=== PATIENT | female | born 1960 | race Caucasian/White ===

== ENCOUNTER 2017-12-26 17:21 | Emergency (ER) | payer OTHER ==
[~2017-12-26] VITALS: Ht 162.6 cm; Wt 55.0 kg
[~2017-12-26 17:21] MED LIST: ESTR1 PO; LAMO100 PO; LEVO.05 PO; TOPI100 PO
[2017-12-26] MEDS ORDERED: TOPI200 PO (17:58)
[2017-12-26] MEDS ORDERED: SYNT175T PO (17:58)
[2017-12-26] MEDS ORDERED: LAMI200T PO (17:58)
--- NOTE | 2017-12-26 17:58 | PD ---
HPI Chief Complaint: Psychiatric Symptoms Time Seen by Provider: 17:40 Travel History International Travel<30 days: No Contact w/Intl Traveler<30days: No Traveled to known affect area: No History of Present Illness HPI 57-year-old female is brought to the emergency department by [facility] for psychiatric evaluation. According to the Mccormack act, the patient made comments that she wanted to hurt herself. She apparently has history of alcohol and drug abuse. The patient appears intoxicated, but answers questions appropriately. She denies any thoughts of hurting herself or anybody else. She does not have feces to her hands and feet. She states she fell and that is why she has feces on her. She denies hitting her head or any LOC. No neck pain or back pain. No chest pain or abdominal pain. No vomiting. She has no medical complaints at this time. She states she uses medical marijuana, but denies any other drug use to me. She states she did drink alcohol last night. Moderate severity. PFSH Past Medical History Diminished Hearing: Yes ([place]) Migraines: Yes Seizures: Yes (epilepsy) Thyroid Disease: Yes ?: Not Past Surgical History Hysterectomy: Yes Social History Alcohol Use: Yes (occ- last used 12/25/17) Tobacco Use: No Substance Use: Yes (marijuana) Allergies-Medications (Allergen,Severity, Reaction): Coded Allergies: Sulfa (Sulfonamide Antibiotics) (Unverified Allergy, Severe, 12/26/17) diclofenac (Unverified Allergy, Severe, 12/26/17) etodolac (Unverified Allergy, Severe, 12/26/17) flurbiprofen (Unverified Allergy, Severe, 12/26/17) ibuprofen (Unverified Allergy, Severe, 12/26/17) indomethacin (Unverified Allergy, Severe, 12/26/17) ketoprofen (Unverified Allergy, Severe, 12/26/17) ketorolac (Unverified Allergy, Severe, 12/26/17) naproxen (Unverified Allergy, Severe, 12/26/17) oxaprozin (Unverified Allergy, Severe, 12/26/17) NSAIDS (Non-Steroidal Anti-Inflamma (Verified Allergy, Unknown, 12/26/17) Reported Meds & Prescriptions Reported Meds & Active Scripts Active Reported Topamax (Topiramate) 200 Mg Tab 200 Mg PO DAILY Synthroid (Levothyroxine Sodium) 175 Mcg Tab 175 Mcg PO DAILY Lamictal (Lamotrigine) 200 Mg Tab 200 Mg PO DAILY Review of Systems Except as stated in HPI: all other systems reviewed are Neg Physical Exam Narrative GENERAL: Well-nourished, well-developed female patient, afebrile. Patient is alert and oriented to person, place, time SKIN: Focused skin assessment warm/dry. HEAD: Normocephalic. Atraumatic EYES: No scleral icterus. No injection or drainage. NECK: Supple, trachea midline. No JVD or lymphadenopathy. CARDIOVASCULAR: Regular rate and rhythm without murmurs, gallops, or rubs. RESPIRATORY: Breath sounds equal bilaterally. No accessory muscle use. Lung sounds are clear to auscultation. GASTROINTESTINAL: Abdomen soft, non-tender, nondistended. MUSCULOSKELETAL: No cyanosis, or edema. PSYCHIATRIC: No delusional thought processes. No hallucinations. Data Data Orders Orders Complete Blood Count With Diff (12/26/17 17:53) Comprehensive Metabolic Panel (12/26/17 17:53) Thyroid Stimulating Hormone (12/26/17 17:53) Psych Screen (12/26/17 17:53) Drug Screen, Random Urine (12/26/17 17:53) Alcohol (Ethanol) (12/26/17 17:53) Potassium Chloride (Kcl) (12/26/17 21:00) Labs Laboratory Tests Test 12/26/17 17:59 White Blood Count 4.2 TH/MM3 Red Blood Count 4.31 MIL/MM3 Hemoglobin 14.4 GM/DL Hematocrit 42.7 % Mean Corpuscular Volume 99.1 FL Mean Corpuscular Hemoglobin 33.5 PG Mean Corpuscular Hemoglobin Concent 33.8 % Red Cell Distribution Width 14.1 % Platelet Count 188 TH/MM3 Mean Platelet Volume 8.1 FL Neutrophils (%) (Auto) 30.5 % Lymphocytes (%) (Auto) 58.3 % Monocytes (%) (Auto) 9.6 % Eosinophils (%) (Auto) 1.3 % Basophils (%) (Auto) 0.3 % Neutrophils # (Auto) 1.3 TH/MM3 Lymphocytes # (Auto) 2.4 TH/MM3 Monocytes # (Auto) 0.4 TH/MM3 Eosinophils # (Auto) 0.1 TH/MM3 Basophils # (Auto) 0.0 TH/MM3 CBC Comment DIFF FINAL Differential Comment Blood Urea Nitrogen 3 MG/DL Creatinine 0.75 MG/DL Random Glucose 109 MG/DL Total Protein 7.2 GM/DL Albumin 3.1 GM/DL Calcium Level 8.1 MG/DL Alkaline Phosphatase 152 U/L Aspartate Amino Transf (AST/SGOT) 142 U/L Alanine Aminotransferase (ALT/SGPT) 44 U/L Total Bilirubin 0.2 MG/DL Sodium Level 144 MEQ/L Potassium Level 3.2 MEQ/L Chloride Level 108 MEQ/L Carbon Dioxide Level 24.3 MEQ/L Anion Gap 12 MEQ/L Estimat Glomerular Filtration Rate 80 ML/MIN Thyroid Stimulating Hormone 3rd Gen 0.231 uIU/ML Ethyl Alcohol Level 384 MG/DL [facility] Medical Decision Making Medical Screen Exam Complete: Yes Emergency Medical Condition: Yes Medical Record Reviewed: Yes Differential Diagnosis Depression versus anxiety versus bipolar disorder versus substance abuse Narrative Course 37-year-old female presents to the emergency department under Mccormack act by local police. CBC, CMP, TSH, alcohol level, urine drug screen are ordered and pending. Psychiatric screen is ordered and pending. CBC shows no acute abnormality. CMP shows hypokalemia at 3.2, elevated AST of 142, alkaline phosphatase 152. TSH is 0.231. Alcohol level is 384. UDS is pending Patient is medically cleared for psychiatric screening and disposition. Diagnosis Primary Impression: Alcohol intoxication Qualified Codes: F10.920 - Alcohol use, unspecified with intoxication, uncomplicated Additional Impression: Medical clearance for psychiatric admission Condition: Stable Keena Simpson [place] Dec 26, 2017 17:58
[2017-12-26 18:13] LABS: AUTOMATED NEUTROPHIL # 1.3 TH/MM3 (1.8-7.7); BASOPHIL % 0.3 % (0.0-2.0); EOSINOPHIL # 0.1 TH/MM3 (0-0.4); EOSINOPHIL % 1.3 % (0.0-4.0); HEMATOCRIT 42.7 % (35.0-46.0); HEMOGLOBIN 14.4 GM/DL (11.6-15.3); LYMPH % 58.3 % (9.0-44.0); LYMPHOCYTE # 2.4 TH/MM3 (1.0-4.8); MEAN CELL VOLUME 99.1 FL (80.0-100.0); MEAN CORPUSCULAR HEMOGLOBIN 33.5 PG (27.0-34.0); MEAN CORPUSCULAR HGB CONC 33.8 % (32.0-36.0); MEAN PLATELET VOLUME 8.1 FL (7.0-11.0); MONO % 9.6 % (0.0-8.0); MONOCYTE # 0.4 TH/MM3 (0-0.9); NEUT % 30.5 % (16.0-70.0); PLATELET COUNT 188 TH/MM3 (150-450); RED BLOOD COUNT 4.31 MIL/MM3 (4.00-5.30); RED CELL DISTRIBUTION WIDTH 14.1 % (11.6-17.2); WHITE BLOOD COUNT 4.2 TH/MM3 (4.0-11.0)
[2017-12-26 18:40] LABS: ALT (GPT) 44 U/L (10-53)
[2017-12-26 18:42] LABS: ALBUMIN 3.1 GM/DL (3.4-5.0); AST (GOT) 142 U/L (15-37); BICARBONATE 24.3 MEQ/L (21.0-32.0); BLOOD UREA NITROGEN 3 MG/DL (7-18); CALCIUM 8.1 MG/DL (8.5-10.1); CHLORIDE 108 MEQ/L (98-107); CREATININE 0.75 MG/DL (0.50-1.00); GLOMERULAR FILTRATION RATE 80 ML/MIN (>89); GLUCOSE,RANDOM 109 MG/DL (74-106); SODIUM (NA) 144 MEQ/L (136-145)
[2017-12-26 18:49] LABS: ALKALINE PHOSPHATASE 152 U/L (45-117); TOTAL BILIRUBIN ADULT 0.2 MG/DL (0.2-1.0); TOTAL PROTEIN 7.2 GM/DL (6.4-8.2)
[2017-12-26] MEDS ORDERED: POTASSIUM CHLORIDE 20 MEQ CONTROLLED RELEASE TAB PO ONE (21:00)
[2017-12-26 21:12] VITALS: BP 109/70; PULSE 89; RESP 16; TEMP 98; O2SAT 98
[2017-12-27 02:32] VITALS: BP 120/77; PULSE 87; RESP 16; O2SAT 96
[2017-12-27] MEDS ORDERED: DIPHENOXYLATE/ATROPINE 2.5 MG/0.025 MG TAB PO ONE (04:00)
[2017-12-27 06:40] VITALS: BP 131/81; PULSE 84; RESP 18; O2SAT 97
--- NOTE | 2017-12-27 13:09 | PD ---
History of Present Illness Chief Complaint: Psychiatric Symptoms Time Seen by Provider: 12:40 Travel History International Travel<30 Days: No Contact w/Intl Traveler<30days: No Known affected area: No Legal Status Legal Status: Mccormack Act Mccormack Act Signed By: Benitez Hopkins History of Present Illness: History of Present Illness HPI 57-year-old, single, female with no reported psychiatric history, when context of alcohol intoxication was brought to the emergency department by [facility] under a Mccormack act initiated by [place] [employer] for psychiatric evaluation. According to the Mccormack act, the patient made comments to her [id number] that she did not want to live anymore. Upon arrival to the ED the patient appeared intoxicated to the provider who evaluated her. Her blood alcohol level at the time of arrival was 384. Patient was allowed to sober up clinically and safe environment and presented no behavioral concerns and no suicidality. EMR is reviewed. No previous contact with [facility] psychiatry Department. As noted above BAL on arrival is 384. Positive toxicology for benzos and cannabinoids. She reports she uses medical marijuana. Patient is seen. She is clinically sober at this time. She is calm and cooperative. Her speech is clear, logical, normal tone and rate. It is tremulous. There is no psychosis, no anna or hypomania. Mood is euthymic. The patient denies any suicidal or homicidal ideation, intent or plan. She states I have no reason to harm myself or to harm anyone else." I have a nice home. I take care of my mom and I am responsible for my father's estate. My brother misunderstood what I said. I stated I don't want to live in [place] anymore. "The patient denies any previous psychiatric history. She denies any current psychiatric symptomatology. Patient denies that she drinks on a daily basis and that yesterday was an isolated incident. PFSH Past Medical History Diminished Hearing: Yes ([place]) Migraines: Yes Seizures: Yes (epilepsy) Thyroid Disease: Yes ?: Not Past Surgical History Hysterectomy: Yes Psychiatric History Psychiatric History Hx Psychiatric Treatment: DENIES any previous. Denies any previous suicide attempt. History of Inpatient Treatment: No Guns or firearms in home: No Social History Single, female, lives with her ex [id number]. She is on disability due to previous head injury. Hx Alcohol Use: Yes (occ- last used 12/25/17) Hx Tobacco Use: No Hx Substance Use: Yes (MINIMIZES ALCOHOL ABUSE/DEPENDENCE) Substance Use Type: Alcohol, Marijuana, Benzos (Valium,Xanax) Hx of Substance Use Treatment: No Family Psychiatric History Negative Allergies-Medications (Allergen,Severity, Reaction): Coded Allergies: Sulfa (Sulfonamide Antibiotics) (Unverified Allergy, Severe, 12/26/17) diclofenac (Unverified Allergy, Severe, 12/26/17) etodolac (Unverified Allergy, Severe, 12/26/17) flurbiprofen (Unverified Allergy, Severe, 12/26/17) ibuprofen (Unverified Allergy, Severe, 12/26/17) indomethacin (Unverified Allergy, Severe, 12/26/17) ketoprofen (Unverified Allergy, Severe, 12/26/17) ketorolac (Unverified Allergy, Severe, 12/26/17) naproxen (Unverified Allergy, Severe, 12/26/17) oxaprozin (Unverified Allergy, Severe, 12/26/17) NSAIDS (Non-Steroidal Anti-Inflamma (Verified Allergy, Unknown, 12/26/17) Reported Meds & Prescriptions Reported Meds & Active Scripts Active Reported Topamax (Topiramate) 200 Mg Tab 200 Mg PO DAILY Synthroid (Levothyroxine Sodium) 175 Mcg Tab 175 Mcg PO DAILY Lamictal (Lamotrigine) 200 Mg Tab 200 Mg PO DAILY Review of Systems Ears, nose, mouth, throat: COMPLAINS OF: Hearing loss Except as stated in HPI: all other systems reviewed are Neg Mental Status Examination Appearance: Appropriate (in hospital gown with fair hygiene and grooming) Consciousness: Alert Orientation: x4 Motor Activity: Normal gait Speech: Unremarkable, Other (tremulous) Language: Adequate Fund of Knowledge: Adequate Attention and Concentration: Adequate Memory: Unremarkable Mood: Appropriate Affect: Appropriate Thought Process & Associations: Intact, Logical, Goal directed Thought Content: Appropriate Hallucination Type: None Delusion Type: None Suicidal Ideation: No Suicidal Plan: No Suicidal Intention: No Homicidal Ideation: No Homicidal Plan: No Homicidal Intention: No Insight: Fair Judgment: Adequate MDM Medical Decision Making Medical Record Reviewed: Yes Assessment/Plan 57-year-old, single, female with no reported psychiatric history, when context of alcohol intoxication was brought to the emergency department by [facility] under a Mccormack act initiated by [place] [employer] for psychiatric evaluation. According to the Mccormack act, the patient made comments to her [id number] that she did not want to live anymore. Upon arrival to the ED the patient appeared intoxicated to the provider who evaluated her. Her blood alcohol level at the time of arrival was 384. Patient was allowed to sober up clinically and safe environment and presented no behavioral concerns and no suicidality. Patient continued to deny suicidality throughout her stay in the emergency department. She continues to minimize her use of alcohol and denies that she is a daily drinker. The patient at this time does not present any evidence of unstable mental illness as defined under the Mccormack act therefore the Mccormack act will be lifted. She is provided psychoeducation and instructed to abstain from alcohol. Psychiatrically clear for discharge from the ED. Orders Orders Complete Blood Count With Diff (12/26/17 17:53) Comprehensive Metabolic Panel (12/26/17 17:53) Thyroid Stimulating Hormone (12/26/17 17:53) Psych Screen (12/26/17 17:53) Drug Screen, Random Urine (12/26/17 17:53) Alcohol (Ethanol) (12/26/17 17:53) Potassium Chloride (Kcl) (12/26/17 21:00) Diphenoxylate/Atropine Tab (Lomotil Tab) (12/27/17 04:00) Diet Regular Basic (12/27/17 Breakfast) Diet Regular Basic (12/27/17 Lunch) Results Vital Signs Date Time Temp Pulse Resp B/P (MAP) Pulse Ox O2 Delivery O2 Flow Rate FiO2 12/27/17 06:40 84 18 131/81 (98) 97 12/27/17 02:32 87 16 120/77 (91) 96 Room Air 12/26/17 21:12 98.0 89 16 109/70 (83) 98 Room Air Laboratory Tests Test 12/26/17 17:59 12/27/17 02:17 White Blood Count 4.2 Red Blood Count 4.31 Hemoglobin 14.4 Hematocrit 42.7 Mean Corpuscular Volume 99.1 Mean Corpuscular Hemoglobin 33.5 Mean Corpuscular Hemoglobin Concent 33.8 Red Cell Distribution Width 14.1 Platelet Count 188 Mean Platelet Volume 8.1 Neutrophils (%) (Auto) 30.5 Lymphocytes (%) (Auto) 58.3 Monocytes (%) (Auto) 9.6 Eosinophils (%) (Auto) 1.3 Basophils (%) (Auto) 0.3 Neutrophils # (Auto) 1.3 Lymphocytes # (Auto) 2.4 Monocytes # (Auto) 0.4 Eosinophils # (Auto) 0.1 Basophils # (Auto) 0.0 CBC Comment DIFF FINAL Differential Comment Blood Urea Nitrogen 3 Creatinine 0.75 Random Glucose 109 Total Protein 7.2 Albumin 3.1 Calcium Level 8.1 Alkaline Phosphatase 152 Aspartate Amino Transf (AST/SGOT) 142 Alanine Aminotransferase (ALT/SGPT) 44 Total Bilirubin 0.2 Sodium Level 144 Potassium Level 3.2 Chloride Level 108 Carbon Dioxide Level 24.3 Anion Gap 12 Estimat Glomerular Filtration Rate 80 Thyroid Stimulating Hormone 3rd Gen 0.231 Ethyl Alcohol Level 384 Urine Opiates Screen NEG Urine Barbiturates Screen NEG Urine Amphetamines Screen NEG Urine Benzodiazepines Screen POS Urine Cocaine Screen NEG Urine Cannabinoids Screen POS Diagnosis Primary Impression: Alcohol intoxication Additional Impression: Medical clearance for psychiatric admission Condition: Stable Problem Qualifiers Primary Impression: Alcohol intoxication Qualified Codes: F10.920 - Alcohol use, unspecified with intoxication, uncomplicated Denise Fonseca [facility] Dec 27, 2017 13:09
[2017-12-27 13:27] VITALS: BP 131/70; PULSE 82; RESP 16; TEMP 99; O2SAT 100
--- NOTE | 2017-12-27 13:35 | PD ---
Physical Exam Date Seen by Provider: Dec 27, 2017 Time Seen by Provider: 13:33 Narrative 57-year-old female previously medically cleared for psychiatric evaluation, has been seen and evaluated by psychiatric staff and deemed psychiatrically stable for discharge at this time. Patient remains medically stable at this time. Follow-up will be based on psychiatric note. Data Data Last Documented VS Vital Signs Date Time Temp Pulse Resp B/P (MAP) Pulse Ox O2 Delivery O2 Flow Rate FiO2 12/27/17 13:27 99.0 82 16 131/70 (90) 100 Room Air Orders Orders Complete Blood Count With Diff (12/26/17 17:53) Comprehensive Metabolic Panel (12/26/17 17:53) Thyroid Stimulating Hormone (12/26/17 17:53) Psych Screen (12/26/17 17:53) Drug Screen, Random Urine (12/26/17 17:53) Alcohol (Ethanol) (12/26/17 17:53) Potassium Chloride (Kcl) (12/26/17 21:00) Diphenoxylate/Atropine Tab (Lomotil Tab) (12/27/17 04:00) Diet Regular Basic (12/27/17 Breakfast) Diet Regular Basic (12/27/17 Lunch) Labs Laboratory Tests Test 12/26/17 17:59 12/27/17 02:17 White Blood Count 4.2 TH/MM3 Red Blood Count 4.31 MIL/MM3 Hemoglobin 14.4 GM/DL Hematocrit 42.7 % Mean Corpuscular Volume 99.1 FL Mean Corpuscular Hemoglobin 33.5 PG Mean Corpuscular Hemoglobin Concent 33.8 % Red Cell Distribution Width 14.1 % Platelet Count 188 TH/MM3 Mean Platelet Volume 8.1 FL Neutrophils (%) (Auto) 30.5 % Lymphocytes (%) (Auto) 58.3 % Monocytes (%) (Auto) 9.6 % Eosinophils (%) (Auto) 1.3 % Basophils (%) (Auto) 0.3 % Neutrophils # (Auto) 1.3 TH/MM3 Lymphocytes # (Auto) 2.4 TH/MM3 Monocytes # (Auto) 0.4 TH/MM3 Eosinophils # (Auto) 0.1 TH/MM3 Basophils # (Auto) 0.0 TH/MM3 CBC Comment DIFF FINAL Differential Comment Blood Urea Nitrogen 3 MG/DL Creatinine 0.75 MG/DL Random Glucose 109 MG/DL Total Protein 7.2 GM/DL Albumin 3.1 GM/DL Calcium Level 8.1 MG/DL Alkaline Phosphatase 152 U/L Aspartate Amino Transf (AST/SGOT) 142 U/L Alanine Aminotransferase (ALT/SGPT) 44 U/L Total Bilirubin 0.2 MG/DL Sodium Level 144 MEQ/L Potassium Level 3.2 MEQ/L Chloride Level 108 MEQ/L Carbon Dioxide Level 24.3 MEQ/L Anion Gap 12 MEQ/L Estimat Glomerular Filtration Rate 80 ML/MIN Thyroid Stimulating Hormone 3rd Gen 0.231 uIU/ML Ethyl Alcohol Level 384 MG/DL Urine Opiates Screen NEG Urine Barbiturates Screen NEG Urine Amphetamines Screen NEG Urine Benzodiazepines Screen POS Urine Cocaine Screen NEG Urine Cannabinoids Screen POS MDM Medical Record Reviewed: Yes Supervised Visit with KATI: Yes Narrative Course 57-year-old female previously medically cleared for psychiatric evaluation, has been seen and evaluated by psychiatric staff and deemed psychiatrically stable for discharge at this time. Patient remains medically stable at this time. Follow-up will be based on psychiatric note. Diagnosis Primary Impression: Alcohol abuse with intoxication Additional Impression: Medical clearance for psychiatric admission Patient Instructions: General Instructions Departure Forms: Tests/Procedures Disposition: DISCHARGE HOME Condition: Stable Benjamin Stone Dec 27, 2017 13:35
== END 2017-12-27 14:30 | disposition home or self-care (01) ==
LOC: NEPC 17:21 → NEDAMB 12-27 14:30
DX: F10.129 Alcohol abuse with intoxication, unspecified (principal); Y90.8 Blood alcohol level of 240 mg/100 ml or more; E07.9 Disorder of thyroid, unspecified; F12.90 Cannabis use, unspecified, uncomplicated
CPT/HCPCS: 80053; 80307; 84443; 85025; 99284